=== PATIENT | female | born 1995 | race American Indian/Alaskan Native ===

== ENCOUNTER 2017-07-30 10:22 | Inpatient (IN) | payer MEDICAID ==
[2017-07-30] MEDS ORDERED: NACL 0.9% 1000 ML 1,000 ML IV ONE ×2 (10:50→13:17)
--- NOTE | 2017-07-30 10:54 | Emergency Department Report ---
Chief Complaint: Nausea/Vomiting/Diarrhea Stated Complaint: HEADACHE Time Seen by Provider: 07/30/17 10:46 - HPI History of Present Illness: 22-year-old female presents to the emergency department with a complaint of nausea, vomiting while 15 weeks . She is . Her OB/ SOCK FOLDER is Dr. Kan. She was recently admitted to [facility] for hyperemesis gravidarum. Since that time she has been on Zofran, promethazine, Diclegis and some type of suppository and still has not been able to keep any food or liquid down. She says that she tried water and pistachios yesterday and threw that up. She called the LEAD DENTAL ASSISTANT and was told to come in to the closest emergency department. She denies any abdominal pain, vaginal bleeding, vaginal discharge, dysuria. - ROS Review of Systems: She is positive for nausea and vomiting. She is negative for abdominal pain, vaginal bleeding, dysuria, vaginal discharge - Exam Vital Signs: Vital Signs 07/30/17 10:24 Temperature 98.1 F Pulse Rate 94 H Respiratory 18 Rate Blood Pressure 123/75 O2 Sat by Pulse 100 Oximetry Physical Exam: Heart and lungs sounds are normal to auscultation. Patient does not appear in any acute distress. MSE screening note: Focused history and physical exam performed. Due to findings the following was ordered: I have ordered a CBC, CMP, urinalysis. An IV will be placed and we will start IV fluid. The patient will be seen on the Main ED side as it may take a while to get to the point where she is tolerating oral fluids and potentially may need admission to the LEAD DENTAL ASSISTANT service. ED Disposition for MSE Condition: Stable Referrals: PRIMARY CARE, [Primary Care Provider] - 3-5 Days
[2017-07-30 11:23] LABS: Basophils # (Auto) 0.1 K/mm3 (0.0-0.1); Basophils % (Auto) 0.8 % (0.0-1.8); Eosinophils # (Auto) 0.1 K/mm3 (0.0-0.4); Eosinophils % (Auto) 0.6 % (0.0-4.3); Hematocrit 36.4 % (30.3-42.9); Hemoglobin 12.7 gm/dl (10.1-14.3); Lymphocytes # (Auto) 1.3 K/mm3 (1.2-5.4); Lymphocytes % (Auto) 12.4 % (13.4-35.0); Mean Corpuscular HGB Conc 35 % (30-34); Mean Corpuscular Hemoglobin 31 pg (28-32); Mean Corpuscular Volume 89 fl (79-97); Monocytes # (Auto) 0.7 K/mm3 (0.0-0.8); Monocytes % (Auto) 6.9 % (0.0-7.3); Platelet Count 199 K/mm3 (140-440); Red Cell Distribution Width 12.6 % (13.2-15.2)
--- NOTE | 2017-07-30 11:44 | Emergency Department Report ---
ED N/V/D HPI - General Chief complaint: Nausea/Vomiting/Diarrhea Stated complaint: HEADACHE Time Seen by Provider: 07/30/17 10:30 Source: patient Mode of arrival: Ambulatory Limitations: No Limitations - History of Present Illness Initial comments: 22-year-old female presents to the emergency department with a complaint of nausea, vomiting while 15 weeks . She is . Her OB/ LEGAL ADMINISTRATOR is Dr. Kan. She was recently admitted to [facility] for hyperemesis gravidarum. Since that time she has been on Zofran, promethazine, Diclegis and some type of suppository and still has not been able to keep any food or liquid down. She says that she tried water and pistachios yesterday and threw that up. She called the HAZMAT TECHNICIAN and was told to come in to the closest emergency department. She denies any abdominal pain, vaginal bleeding, vaginal discharge, dysuria. Patient states she has not held any food down for approximately 1 month. Patient states when she was discharged from [place] last week she was only able to hold down a few crackers and a few sips of water.. Since leaving [place] her symptoms have worsened and none of the medications are helping her. Patient denies cramping and loss of fluid per vagina. Patient denies fever chills. Patient denies abdominal pain. MD complaint: nausea, vomiting -: Sudden Description of Vomiting: watery Associated Abdominal Pain: No Context: other (.) Associated Symptoms: headaches, malaise, weakness. denies: myalgias, chest pain , cough, diaphoresis, fever/chills, loss of appetite, nausea/vomiting, rash, dysuria, shortness of breath, syncope - Related Data Home Medications Medication Instructions Recorded Confirmed Last Taken No Known Home Medications [No 07/30/17 07/30/17 Unknown Reported Home Medications] Allergies Allergy/AdvReac Type Severity Reaction Status Date / Time No Known Allergies Allergy Verified 07/30/17 10:24 ED Review of Systems ROS: Stated complaint: HEADACHE Other details as noted in HPI Constitutional: malaise, weakness. denies: chills, fever Eyes: denies: eye pain, eye discharge, vision change ENT: denies: ear pain, throat pain Respiratory: denies: cough, shortness of breath, wheezing Cardiovascular: denies: chest pain, palpitations Endocrine: no symptoms reported Gastrointestinal: nausea, vomiting. denies: abdominal pain, diarrhea Genitourinary: denies: urgency, dysuria, discharge Musculoskeletal: denies: back pain, joint swelling, arthralgia Skin: denies: rash, lesions Neurological: weakness. denies: headache, paresthesias Psychiatric: denies: anxiety, depression Hematological/Lymphatic: denies: easy bleeding, easy bruising ED Past Medical Hx - Past Medical History Previous Medical History?: No - Surgical History Past Surgical History?: No - Family History Family history: no significant - Social History Smoking Status: Never Smoker Substance Use Type: None - Medications Home Medications: Home Medications Medication Instructions Recorded Confirmed Last Taken Type No Known Home Medications [No 07/30/17 07/30/17 Unknown History Reported Home Medications] ED Physical Exam - General Limitations: No Limitations General appearance: alert, in no apparent distress - Head Head exam: Present: atraumatic, normocephalic - Eye Eye exam: Present: normal appearance - ENT ENT exam: Present: mucous membranes moist - Neck Neck exam: Present: normal inspection - Respiratory Respiratory exam: Present: normal lung sounds bilaterally. Absent: respiratory distress - Cardiovascular Cardiovascular Exam: Present: regular rate, normal rhythm. Absent: systolic murmur, diastolic murmur, rubs, gallop - GI/Abdominal GI/Abdominal exam: Present: soft, normal bowel sounds - Extremities Exam Extremities exam: Present: normal inspection - Back Exam Back exam: Present: normal inspection - Neurological Exam Neurological exam: Present: alert, oriented X3 - Psychiatric Psychiatric exam: Present: normal affect, normal mood - Skin Skin exam: Present: warm, dry, intact, normal color. Absent: rash ED Course Vital Signs 07/30/17 07/30/17 10:24 12:26 Temperature 98.1 F Pulse Rate 94 H 88 Respiratory 18 18 Rate Blood Pressure 123/75 Blood Pressure 118/52 [Left] O2 Sat by Pulse 100 100 Oximetry - Reevaluation(s) Reevaluation #1: HAZMAT TECHNICIAN consultation, Dr. Moreland. Dr. Moreland recommends admission. Will admit to Dr. Moreland's service for further evaluation and treatment. Discussed treatment plan with patient. Patient agrees to treatment plan. Reevaluation #2: Ultrasound reviewed 07/30/17 15:02 ED Medical Decision Making - Lab Data Result diagrams: 07/30/17 11:02 07/30/17 14:35 - Radiology Data Radiology results: report reviewed Ultrasound reviewed and normal for single IUP - Medical Decision Making Patient is a 22-year-old female that is 15 weeks day presents to emergency room with hyperemesis.. Will admit patient to Dr. Moreland's service. - Differential Diagnosis nausea and vomiting. Headache. Hyperemesis. . Dehydration Critical care attestation.: If time is entered above; I have spent that time in minutes in the direct care of this critically ill patient, excluding procedure time. ED Disposition Clinical Impression: Hyperemesis gravidarum, Intractable nausea and vomiting, Disposition: DC-09 OP ADMIT IP TO THIS HOSP Is pt being admited?: Yes Does the pt Need Aspirin: No Condition: Serious Time of Disposition: 12:41
[2017-07-30 11:47] LABS: Alanine Aminotransferase 18 units/L (7-56); BUN/Creatinine Ratio 20; Blood Urea Nitrogen 8 mg/dL (7-17); Calcium 9.2 mg/dL (8.4-10.2); Hemolysis Index 0
[2017-07-30 13:55] LABS: HCG Qualitative,Urine Positive (Negative)
[2017-07-30 13:56] LABS: Bilirubin,Urine NEG (Negative); Blood,Urine NEG (Negative); Color,Urine Yellow (Yellow); Mucus,Urine 3+ /HPF; Protein,Urine <15 mg/dL mg/dL (Negative); Urobilinogen,Urine < 2.0 mg/dL (<2.0)
[2017-07-30] MEDS ORDERED: ZOFRAN IV PRN (14:23)
[2017-07-30] MEDS ORDERED: D5LR 1,000 ML IV SCH (15:00)
--- NOTE | 2017-07-30 15:01 | Ultrasound Report ---
FINAL REPORT EXAM: US OB > = 14 WEEKS FETUS HISTORY: , n/v TECHNIQUE: Transabdominal sonography of the pelvis. PRIORS: None. FINDINGS: There is a single, live intrauterine . Ultrasound estimated gestational age is 14 weeks 4 days. Ultrasound estimated date of delivery is 24 January 2018. heart motion is detected. Remainder of uterus and adnexa are grossly unremarkable. IMPRESSION: 1. Single, live intrauterine .
[2017-07-30] MEDS: D5LR 1,000 ML IV SCH ×2 (15:13→18:19)
[2017-07-30] MEDS: REGLAN IV SCH ×2 (15:13→20:30)
[2017-07-30] MEDS: PHENERGAN PR SCH ×2 (15:13→20:30)
[2017-07-30 15:20] LABS: BUN/Creatinine Ratio 18; Blood Urea Nitrogen 7 mg/dL (7-17); Calcium 8.2 mg/dL (8.4-10.2); Hemolysis Index 9
--- NOTE | 2017-07-30 18:56 | History and Physical Report ---
History of Present Illness Date of examination: 07/30/17 Date of admission: 07/30/17 12:40 Chief complaint: Persistent nausea and vomiting History of present illness: Pt is a 22-year-old female @ 15 weeks presents to the emergency department with a complaint of nausea and vomiting. Her PICKING CREW SUPERVISOR is Dr. Kan. She was recently admitted to [facility] for hyperemesis gravidarum. Since that time she has been on Zofran, promethazine, Diclegis and some type of suppository and still has not been able to keep any food or liquid down. She says that she tried water and pistachios yesterday and threw that up. She called the PICKING CREW SUPERVISOR and was told to come in to the closest emergency department. She denies any abdominal pain, vaginal bleeding, vaginal discharge , dysuria. Patient states she has not held any food down for approximately 1 month. Patient states when she was discharged from [place] last week she was only able to hold down a few crackers and a few sips of water.. Since leaving [place] her symptoms have worsened and none of the medications are helping her. Patient denies cramping and loss of fluid per vagina. Patient denies fever chills. Patient denies abdominal pain. Past History Past Medical History: no pertinent history Past Surgical History: no surgical history Social history: no significant social history, single - Obstetrical History Expected Date of Delivery: 01/22/18 Actual Gestation: 15 Week(s) 0 Day(s) Medications and Allergies Allergies Allergy/AdvReac Type Severity Reaction Status Date / Time No Known Allergies Allergy Verified 07/30/17 10:24 Home Medications Medication Instructions Recorded Confirmed Last Taken Type No Known Home Medications [No 07/30/17 07/30/17 Unknown History Reported Home Medications] Active Meds: Active Medications Dextrose/Lactated Ringer's (D5lr) 1,000 mls @ 500 mls/hr IV DIRECT VIVIANA Stop: 07/31/17 16:59 Last Admin: 07/30/17 18:19 Dose: 500 mls/hr Dextrose/Lactated Ringer's (D5lr) 1,000 mls @ 150 mls/hr IV DIRECT VIVIANA Metoclopramide HCl (Reglan) 10 mg IV Q6H VIVIANA Last Admin: 07/30/17 15:13 Dose: 10 mg Multivitamins/Iron/Calcium ( Vitamin) 1 each PO QDAY [facility] Ondansetron HCl (Zofran) 4 mg IV Q6H PRN PRN Reason: N/V unrelieved by Regvanessa Promethazine HCl (Phenergan) 25 mg SD Q6H [facility] Last Admin: 07/30/17 15:13 Dose: 25 mg Review of Systems All systems: negative - Vital Signs Vital signs: Vital Signs Temp Pulse Resp BP Pulse Ox 98.1 F 94 H 18 123/75 100 07/30/17 10:24 07/30/17 10:24 07/30/17 10:24 07/30/17 10:24 07/30/17 10:24 Temp Pulse Resp BP Pulse Ox 98.0 F 88 18 111/69 100 07/30/17 14:30 07/30/17 14:30 07/30/17 14:30 07/30/17 14:30 07/30/17 14:30 - Physical Exam Breasts: Positive: deferred Cardiovascular: Regular rate Lungs: Positive: Clear to auscultation Abdomen: Positive: normal appearance, soft Genitourinary (Female): Positive: normal external genitalia - Obstetrical Uterine Contraction Monitor Mode: External Results Result Diagrams: 07/30/17 11:02 07/30/17 14:35 Abnormal lab results 07/30/17 07/30/17 07/30/17 Range/Units 11:02 11:02 12:41 MCHC 35 H (30-34) % RDW 12.6 L (13.2-15.2) % Lymph % (Auto) 12.4 L (13.4-35.0) % Seg Neutrophils % 79.3 H (40.0-70.0) % Seg Neutrophils # 8.1 H (1.8-7.7) K/mm3 Creatinine 0.4 L (0.7-1.2) mg/dL Calcium (8.4-10.2) mg/dL HCG, Quant 83281 H (0-4) mIU/mL Urine HCG, Qual (Negative) 07/30/17 07/30/17 Range/Units 13:20 14:35 MCHC (30-34) % RDW (13.2-15.2) % Lymph % (Auto) (13.4-35.0) % Seg Neutrophils % (40.0-70.0) % Seg Neutrophils # (1.8-7.7) K/mm3 Creatinine 0.4 L (0.7-1.2) mg/dL Calcium 8.2 L (8.4-10.2) mg/dL HCG, Quant (0-4) mIU/mL Urine HCG, Qual Positive A (Negative) All other labs normal. Ultrasound: report reviewed Assessment and Plan - Patient Problems (1) 15 weeks gestation of Onset Date: 07/30/17 Current Visit: Yes Status: Acute Plan to address problem: A: IUP @ 15 weeks Hyperemesis gravidarum P: Admit for IV hydration and IV antiemetics (2) Hyperemesis gravidarum Onset Date: 07/30/17 Current Visit: Yes Status: Acute
[2017-07-30] MEDS ORDERED: TYLENOL PO PRN (21:08)
[2017-07-31] MEDS: REGLAN IV SCH ×2 (03:40→09:45)
[2017-07-31] MEDS: PHENERGAN PR SCH ×2 (03:40→09:00)
[2017-07-31] MEDS ORDERED: PRENATAL VITAMIN PO SCH (10:00)
--- NOTE | 2017-07-31 11:43 | Progress Note ---
Assessment and Plan - Patient Problems (1) 15 weeks gestation of Onset Date: 07/30/17 Current Visit: Yes Status: Acute Plan to address problem: A: IUP @ 15 weeks Hyperemesis gravidarum - improved P: Will advance diet today Possible discharge to home after lunch (2) Hyperemesis gravidarum Onset Date: 07/30/17 Current Visit: Yes Status: Acute Subjective - Subjective Date of service: 07/31/17 Principal diagnosis: IUP @ 15 weeks; Hyperemesis Interval history: Pt is feeling better today, no complaints. She denies further vomiting, and tolerating a liquid diet. Patient reports: no new complaints, no vaginal bleeding Objective - Vital Signs Vital Signs: Vital Signs - 12hr 07/31/17 07/31/17 07/31/17 00:47 04:45 08:23 Temperature 98.7 F 98.0 F 98.6 F Pulse Rate 77 72 82 Respiratory 20 18 20 Rate Blood Pressure 105/55 Blood Pressure 92/68 114/63 [Left] O2 Sat by Pulse 100 99 98 Oximetry - Exam Cardiovascular: Regular rate Lungs: Clear to auscultation Abdomen: Present: normal appearance - Labs Labs: Abnormal Labs 07/30/17 07/30/17 07/30/17 11:02 11:02 12:41 MCHC 35 H RDW 12.6 L Lymph % (Auto) 12.4 L Seg Neutrophils % 79.3 H Seg Neutrophils # 8.1 H Creatinine 0.4 L Calcium HCG, Quant 28553 H Urine HCG, Qual 07/30/17 07/30/17 13:20 14:35 MCHC RDW Lymph % (Auto) Seg Neutrophils % Seg Neutrophils # Creatinine 0.4 L Calcium 8.2 L HCG, Quant Urine HCG, Qual Positive A Laboratory Results - last 24 hr 07/30/17 07/30/17 07/30/17 11:02 12:41 13:20 Sodium 138 Potassium 3.6 Chloride 99.4 Carbon Dioxide 23 Anion Gap 19 BUN 8 Creatinine 0.4 L Estimated GFR > 60 BUN/Creatinine Ratio 20 Glucose 79 Calcium 9.2 Total Bilirubin 0.60 AST 16 ALT 18 Alkaline Phosphatase 78 Total Protein 7.1 Albumin 4.0 Albumin/Globulin Ratio 1.3 HCG, Quant 42607 H Urine Color Yellow Urine Turbidity Clear Urine pH 6.0 Ur Specific [place] 1.016 Urine Protein <15 mg/dl Urine Glucose (UA) Neg Urine Ketones 80 Urine Blood Neg Urine Nitrite Neg Ur Reducing Substances Not Reportable Urine Bilirubin Neg Urine Ictotest Not Reportable Urine Urobilinogen < 2.0 Ur Leukocyte Esterase Tr Urine WBC (Auto) 1.0 Urine RBC (Auto) 2.0 U Epithel Cells (Auto) 6.0 Urine Mucus 3+ Urine HCG, Qual Positive A 07/30/17 14:35 Sodium 140 Potassium 3.7 Chloride 104.0 Carbon Dioxide 22 Anion Gap 18 BUN 7 Creatinine 0.4 L Estimated GFR > 60 BUN/Creatinine Ratio 18 Glucose 71 Calcium 8.2 L Total Bilirubin AST ALT Alkaline Phosphatase Total Protein Albumin Albumin/Globulin Ratio HCG, Quant Urine Color Urine Turbidity Urine pH Ur Specific [place] Urine Protein Urine Glucose (UA) Urine Ketones Urine Blood Urine Nitrite Ur Reducing Substances Urine Bilirubin Urine Ictotest Urine Urobilinogen Ur Leukocyte Esterase Urine WBC (Auto) Urine RBC (Auto) U Epithel Cells (Auto) Urine Mucus Urine HCG, Qual
[2017-07-31 12:11] VITALS: BP 116/55
--- NOTE | 2017-07-31 13:53 | Discharge Summary ---
Providers - Providers Date of Admission: 07/30/17 12:40 Date of discharge: 07/31/17 Attending physician: TALHA OROZCO 07/30/17 14:23 Consult to Dietitian/Nutrition [CONS] Routine Physician Instructions: Reason For Exam: Reason for Consult: hyper grav Reason for Consult: Poor oral intake Hospitalization Reason for admission: other (IUP @ 15 weeks; Hyperemesis) Other procedures: none complications: none Discharge diagnosis: other (IUP @ 15 weeks; Hyperemesis - resolved) Hospital course: Pt is a 22-year-old female @ 15 weeks presented to the emergency department with a complaint of nausea and vomiting. Her PODIATRY PROFESSOR is Dr. Kan. She was recently admitted to [facility] for hyperemesis gravidarum. Since that time she has been on Zofran, promethazine, Diclegis and some type of suppository and still has not been able to keep any food or liquid down. She says that she tried water and pistachios yesterday and threw that up. She called the PODIATRY PROFESSOR and was told to come in to the closest emergency department. She denies any abdominal pain, vaginal bleeding, vaginal discharge , dysuria. Patient states she has not held any food down for approximately 1 month. Patient states when she was discharged from [place] last week she was only able to hold down a few crackers and a few sips of water.. Since leaving [place] her symptoms have worsened and none of the medications are helping her. Patient denies cramping and loss of fluid per vagina. Patient denies fever chills. Patient denies abdominal pain. She was admitted and received IV hydration and IV antiemetics and improved. Today is tolerating a reg diet without nausea and vomiting, and wants to go home. She will follow up with Dr Kan next week. Condition at discharge: Good Disposition: DC-01 TO HOME OR SELFCARE - Discharge Diagnoses (1) 15 weeks gestation of Status: Chronic (2) Hyperemesis gravidarum Status: Resolved Plan - Provider Discharge Summary Activity: routine, no sex for 6 weeks, no heavy lifting 4 weeks, no strenuous exercise Diet: routine Instructions: routine Additional instructions: [] Smoking cessation referral if applicable(refer to patient education folder for contact #) [] Refer to [facility] Booklet Call your doctor immediately for: * Fever > 100.5 * Heavy vaginal bleeding ( >1 pad per hour) * Severe persistent headache * Shortness of breath * Reddened, hot, painful area to leg or breast * Drainage or odor from incision. * Keep incision clean and dry at all times and follow doctor's instructions regarding bathing/showering - Follow up plan Follow up: TAWANA KAN MD [Other] - 3-5 Days
== END 2017-07-31 14:45 | disposition home or self-care (01) | DRG 781 ==
LOC: ED 10:22 → OB 12:40
PROVIDERS: ADMIT Obstetrics & Gynecology; ATTEND Obstetrics & Gynecology
DX: O21.0 Mild hyperemesis gravidarum (principal); Z3A.15 15 weeks gestation of pregnancy
CPT/HCPCS: 36415; 76805; 80048; 80053; 81001; 81025; 84702; 85025; J2765; J7030; J7121